=== PATIENT | female | born 1960 | race Asian ===

== ENCOUNTER 2020-03-17 02:08 | Emergency (ER) | payer MEDICAID, OTHER ==
[~2020-03-17] VITALS: Ht 188 cm; Wt 74.8 kg
[2020-03-17 02:13] VITALS: BP 124/75
== END 2020-03-17 03:50 | disposition left against medical advice (07) ==
LOC: ER 02:08
DX: T59.94XA Toxic effect of unspecified gases, fumes and vapors, undetermined, initial encounter (principal); R51.9 Headache, unspecified; I10 Essential (primary) hypertension; X58.XXXA Exposure to other specified factors, initial encounter; Y93.89 Activity, other specified; Y92.89 Other specified places as the place of occurrence of the external cause; Y99.8 Other external cause status